=== PATIENT | female | born 1985 | race Caucasian/White ===

== ENCOUNTER 2017-05-22 04:34 | Emergency (ER) | payer OTHER ==
[~2017-05-22] VITALS: Ht 160 cm; Wt 106.6 kg
[~2017-05-22 04:34] MED LIST: AMOXICILLIN500 MG PO; NORCO 10-325 T1 EACH PO; PREDNISONE20 MG PO
[2017-05-22] MEDS ORDERED: METFORMIN HCL500 MG PO (04:48)
== END 2017-05-22 05:30 | disposition home or self-care (01) ==
LOC: ED 04:34
DX: M79.672 Pain in left foot (principal); G89.29 Other chronic pain; R73.03 Prediabetes; Z88.1 Allergy status to other antibiotic agents; Z79.84 Long term (current) use of oral hypoglycemic drugs
CPT/HCPCS: 73630; 99283

== ENCOUNTER 2017-08-19 12:26 | Emergency (ER) | payer OTHER ==
[~2017-08-19] VITALS: Ht 160 cm; Wt 100.0 kg
--- OUTSIDE RECORDS SUMMARY | ~2017-08-19 | XMS | Clinical Summary ---
Demographics + + + | Address | [address] | | | [place] [address] | + + + | Home Phone | | + + + | Preferred Language | Unknown | + + + | Marital Status | Unknown | + + + | Advent Affiliation | Unknown | + + + | Race | Unknown | + + + | Ethnic Group | Unknown | + + + Author + + + | Author | [facility] | | | and [place] | + + + | Organization | [facility] | | | and [place] | + + + | Address | Unknown | + + + | Phone | Unavailable | + + + Support + + +---------+ + | Name | Relationship | Address | Phone | + + +---------+ + | Juan Luis Montes De Oca | JESSICA | Unknown | | + + +---------+ + Care Team Providers + +------+ + | Care Roll Mechanic Name | Role | Phone | + +------+ + PP | Unavailable | + +------+ + Allergies Not on File Current Medications Not on file Active Problems Not on file Social History + +-------+ +--------+------+ | Tobacco Use | Types | Packs/Day | Years | Date | | | | | Used | | + +-------+ +--------+------+ | Never Assessed | | | | | + +-------+ +--------+------+ + + + | Sex Assigned at | Date Recorded | | | | + + + | Not on file | | + + + Plan of Treatment + + + + + | Health Maintenance | Due Date | Last Done | Comments | + + + + + | Vaccine: | | | | | Dtap/Tdap/Td (1 - | 7 | | | | Tdap) | | | | + + + + + | CERVICAL CANCER | | | | | SCREENING (PAP EVERY | 9 | | | | 3 YEARS 21-64 ) | | | | + + + + + | Vaccine: Influenza | | | | | (Season Ended) | 8 | | | + + + + + Results Not on filefrom Last 3 Months"
--- OUTSIDE RECORDS SUMMARY | ~2017-08-19 | XMS | Clinical Summary ---
Demographics + + + | Address | [address] | | | [place] [address] | + + + | Home Phone | | + + + | Preferred Language | Unknown | + + + | Marital Status | Single | + + + | Mosque Affiliation | Unknown | + + + | Race | Unknown | + + + | Ethnic Group | Unknown | + + + Author + + + | Author | [facility] | + + + | Organization | [facility] | + + + | Address | Unknown | + + + | Phone | Unavailable | + + + Support + + + + + | Name | Relationship | Address | Phone | + + + + + | Msg Chelsey | ECON | [address] | | | | | [place] | | | | | [address] | | + + + + + | Juan Luis Conti | ECON | Unknown | | + + + + + Care Team Providers + +------+ + | Care Senior Programmer Name | Role | Phone | + +------+ + | Taras Cedillo | PP | | + +------+ + Allergies + + + + + + | Active Allergy | Reactions | Severity | Noted | Comments | | | | | Date | | + + + + + + | Sulfamethoxazole-Tri | Rash | Medium | 12/11/19 | | | methoprim | | | 14 | | + + + + + + Current Medications No known medications Active Problems No known active problems Family History + + +------+ + | Medical History | Relation | Name | Comments | + + +------+ + | Diabetes type II | Father | | | + + +------+ + + +------+--------+ + | Relation | Name | Status | Comments | + +------+--------+ + | Father | | Alive | | + +------+--------+ + | Mother | | Alive | | + +------+--------+ + Social History + +-------+ +--------+------+ | Tobacco Use | Types | Packs/Day | Years | Date | | | | | Used | | + +-------+ +--------+------+ | Never Smoker | | | | | + +-------+ +--------+------+ + + + | Sex Assigned at | Date Recorded | | | | + + + | Not on file | | + + + Last Filed Vital Signs + + + + | Vital Sign | Reading | Time Taken | + + + + | Blood Pressure | 128/76 | 12/10/2013 11:03 AM PDT | + + + + | Pulse | 86 | 12/10/2013 11:03 AM PDT | + + + + | Temperature | 36.7 C (98 F) | 12/10/2013 11:03 AM PDT | + + + + | Respiratory Rate | 16 | 12/10/2013 11:03 AM PDT | + + + + | Oxygen Saturation | 100% | 12/10/2013 11:03 AM PDT | + + + + | Inhaled Oxygen | - | - | | Concentration | | | + + + + | Weight | 98.9 kg (218 lb) | 12/10/2013 11:03 AM PDT | + + + + | Height | - | - | + + + + | Body Mass Index | - | - | + + + + Plan of Treatment + + + + + | Health Maintenance | Due Date | Last Done | Comments | + + + + + | Vaccine: | | | | | Dtap/Tdap/Td (1 - | 7 | | | | Tdap) | | | | + + + + + | Cervical Cancer | | | | | Screening (Pap) | 9 | | | + + + + + | Vaccine: Influenza | | | | | (Season Ended) | 8 | | | + + + + + Results Not on filefrom Last 3 Months Insurance + +--------+ +------+-------+ + | Payer | Benefi | Subscriber | Type | Phone | Address | | | t Plan | ID | | | | | | / | | | | | | | Group | | | | | + +--------+ +------+-------+ + | MEDICAID | [place] | xxxxxxxx | | | [address] | | | [place] | | | | [place] | | | [place] | | | | [address] | | | [employer] OF MARKETING [employer]OMETRY | | | | | + +--------+ +------+-------+ + + +--------+ +--------+ + + | Guarantor Name | Accoun | Relation to | Date | Phone | Billing Address | | | t Type | Patient | of | | | | | | | | | | + +--------+ +--------+ + + | REYNA CONTI | Person | Self [birth year] | Home: | [address] | | | al/Fam | | 1986 | [phone] | [place] | | | [place] | | | [phone] | [phone] | + +--------+ +--------+ + +"
--- OUTSIDE RECORDS SUMMARY | ~2017-08-19 | XMS | Clinical Summary ---
Demographics + + + | Address | [address] | | | [place] [address] | + + + | Home Phone | | + + + | Preferred Language | Unknown | + + + | Marital Status | Unknown | + + + | Episcopalian Affiliation | Unknown | + + + | Race | Unknown | + + + | Ethnic Group | Unknown | + + + Author + + + | Author | [facility] | | | and [place] | + + + | Organization | [facility] | | | and [place] | [...] Team Providers + +------+ + | Care Goat Herder Name | Role | Phone | + [...]
--- OUTSIDE RECORDS SUMMARY | ~2017-08-19 | XMS | Clinical Summary ---
Demographics + + + | Address | [address] | | | [place] [address] | + + + | Home Phone | | + + + | Preferred Language | Unknown | + + + | Marital Status | Single | + + + | Uatsdin Affiliation | Unknown | + + + | Race | Unknown | + + + | Ethnic Group | Unknown | + + + Author + + + | Author | [facility] | + + + | Organization | [facility] | + + + | Address | Unknown | + + + | Phone | Unavailable | + + + Support + + + + + | Name | Relationship | Address | Phone | + + + + + | Msg Chelsey | ECON | [address] | | | | | [place] | | | | | [address] | | + + + + + | Juan Luis Conti | ECON | Unknown | | + + + + + Care Team Providers + +------+ + | Care Sulfate Drier Machine Operator Name | Role | Phone | + [...] | xxxxxxxx | | | [address] | | | [place] | | | | [place] | | | [place] | | | | [phone] | | | RECORD CLERK SALESPERSON | | | | | + +--------+ [...] | | | [place] | | | [phone] | [phone] | + +--------+ +--------+ + +"
[~2017-08-19 12:26] MED LIST changes: +METFORMIN HCL500 MG PO
[2017-08-19] MEDS ORDERED: PRENATAL COMPL1 EACH PO (12:41)
== END 2017-08-19 14:43 | disposition home or self-care (01) ==
LOC: ED 12:26
DX: O20.9 Hemorrhage in early pregnancy, unspecified (principal); R73.03 Prediabetes; Z88.1 Allergy status to other antibiotic agents; Z79.84 Long term (current) use of oral hypoglycemic drugs; Z3A.10 10 weeks gestation of pregnancy
CPT/HCPCS: 76801; 84702; 85025; 86900; 86901; 99284; J7030

== ENCOUNTER 2018-08-02 10:03 | Emergency (ER) | payer OTHER ==
[~2018-08-02] VITALS: Ht 160 cm; Wt 110.8 kg
--- OUTSIDE RECORDS SUMMARY | ~2018-08-02 | XMS | Clinical Summary ---
Demographics + + + | Address | [address] | | | [place] [address] | + + + | Home Phone | | + + + | Preferred Language | Unknown | + + + | Marital Status | Single | + + + | Restoration Affiliation | Unknown | + + + | Race | Unknown | + + + | Ethnic Group | Unknown | + + + Author + + + | Author | [facility] | + + + | Organization | [facility] | + + + | Address | Unknown | + + + | Phone | Unavailable | + + + Support + + + + + | Name | Relationship | Address | Phone | + + + + + | Msg Chelsey | ECON | [address] | | | | | [place] | | | | | [address] | | + + + + + | Juan Luis Conti | ECON | Unknown | | + + + + + Care Team Providers + +------+ + | Care Sheriff Name | Role | Phone | + [...] | | | | Screening (Pap) | 8 | | | + + + + + | Vaccine: Influenza | | | | | (#1) | 8 | | | + + [...] +------+-------+ + | MEDICAID | [place] | [id number] | | | [address] | | | [place] | | | | [place] | | | [place] | | | | [phone] | | | SENIOR LINUX ADMINISTRATOR | | | | | + +--------+ [...] | | | [place] | | | [phone] | [phone] | + +--------+ +--------+ + +"
--- OUTSIDE RECORDS SUMMARY | ~2018-08-02 | XMS | Clinical Summary ---
Demographics + + + | Address | [address] | | | [place] [address] | + + + | Home Phone | | + + + | Preferred Language | Unknown | + + + | Marital Status | Single | + + + | Taoist Affiliation | Unknown | + + + | Race | Unknown | + + + | Ethnic Group | Unknown | + + + Author + + + | Author | [facility] | + + + | Organization | [facility] | + + + | Address | Unknown | + + + | Phone | Unavailable | + + + Support + + + + + | Name | Relationship | Address | Phone | + + + + + | Msg Chelsey | ECON | [address] | | | | | [place] | | | | | [address] | | + + + + + | Juan Luis Conti | ECON | Unknown | | + + + + + Care Team Providers + +------+ + | Care Clinical Informatics Physician Name | Role | Phone | + [...] +------+-------+ + | MEDICAID | [place] | [id number] | | | [address] | | | [place] | | | | [place] | | | [place] | | | | [phone] | | | COVERSTITCH BINDER | | | | | + +--------+ [...] | | | [place] | | | [phone] | [phone] | + +--------+ +--------+ + +"
--- OUTSIDE RECORDS SUMMARY | ~2018-08-02 | XMS | Clinical Summary ---
Demographics + + + | Address | [address] | | | [place] [address] | + + + | Home Phone | | + + + | Preferred Language | Unknown | + + + | Marital Status | Single | + + + | Quaker Affiliation | Unknown | + + + | Race | Unknown | + + + | Ethnic Group | Unknown | + + + Author + + + | Author | [facility] | | | and [place] | + + + | Organization | [facility] | | | and [place] | + + + | Address | Unknown | + + + | Phone | Unavailable | + + + Support + + +---------+ + | Name | Relationship | Address | Phone | + + +---------+ + | Juan Luis Conti | ECON | Unknown | | + + +---------+ + | Valdo Pressley | ECON | Unknown | | + + +---------+ + Care Team Providers + +------+ + | Care Used Building Materials Yard Worker Name | Role | Phone | + +------+ + | Azam Sierra DO | PP | | + +------+ + Allergies + + + + + + | Active Allergy | Reactions | Severity | Noted | Comments | | | | | Date | | + + + + + + | Sulfamethoxazole-Tri | Rash | Low | 12/23/19 | | | methoprim | | | 18 | | + + + + + + Current Medications + + +---------+---------+------+------+-------+ | Prescription | Sig. | Disp. | Refills | Star | End | Statu | | | | | | t | Date | s | | | | | | Date | | | + + +---------+---------+------+------+-------+ | 27-0.8 mg | Take 1 tablet by | | | | | Activ | | multivitamin tablet | mouth Daily. | | | | | e | + + +---------+---------+------+------+-------+ | labetalol | Take 1 tablet by | 60 | 1 | 10/2 | | Activ | | (NORMODYNE) 100 mg | mouth 2 times daily. | tablet | | 8/20 | | e | | tablet | | | | 18 | | | + + +---------+---------+------+------+-------+ | ibuprofen | Take 1 tablet by | 30 | 1 | 10/2 | | Activ | | (ADVIL,MOTRIN) 600 | mouth every 6 hours | tablet | | 8/20 | | e | | MG tablet | as needed for Pain. | | | 18 | | | + + +---------+---------+------+------+-------+ | | Take 1-2 tablets by | 30 | 0 | 10/2 | | Activ | | HYDROcodone-acetamin | mouth every 4 hours | tablet | | 8/20 | | e | | ophen (NORCO) 5-325 | as needed for Pain. | | | 18 | | | | mg per tablet | | | | | | | + + +---------+---------+------+------+-------+ | docusate sodium | Take 200 mg by mouth | 60 | 1 | 10/2 | | Activ | | (COLACE) 100 MG | Twice daily as | capsule | | 8/20 | | e | | capsule | needed for | | | 18 | | | | | Constipation. | | | | | | + + +---------+---------+------+------+-------+ Active Problems + + + | Problem | Noted Date | + + + | S/P section | 03/02/2018 | + + + | Obesity, Class III, BMI 40-49.9 (morbid obesity) (HCC) | 03/01/2018 | + + + | Term | 03/01/2018 | + + + | Hypertension | 03/01/2018 | + + + | Beta Blockers - Daily Use | 03/01/2018 | + + + | Gestational diabetes, diet controlled | 12/20/2017 | + + + Immunizations + + + + | Name | Dates Previously Given | Next Due | + + + + | MMR, 2 DOSE | 03/02/2018 (Deferred: - pt is immune) | | | (PED/ADULT) | | | + + + + | TDAP, (ADOL/ADULT) | 03/02/2018 (Deferred: - pt has already had | | | | it this ) | | + + + + Social History + +-------+ +--------+------+ | Tobacco Use | Types | Packs/Day | Years | Date | | | | | Used | | + +-------+ +--------+------+ | Never Smoker | | | | | + +-------+ +--------+------+ + +---+---+---+ | Smokeless Tobacco: | | | | | Never Used | | | | + +---+---+---+ + + +---------+ + | Alcohol Use | Drinks/We | oz/Week | Comments | | | ek | | | + + +---------+ + | No | | | | + + +---------+ + + + + | Sex Assigned at | Date Recorded | | | | + + + | Not on file | | + + + Last Filed Vital Signs + + + + | Vital Sign | Reading | Time Taken | + + + + | Blood Pressure | 168/86 | 03/05/20181599 PDT | + + + + | Pulse | 82 | 03/05/2018 1600 PDT | + + + + | Temperature | 36.8 C (98.2 F) | 03/05/2018 0826 PDT | + + + + | Respiratory Rate | 18 | 03/05/20181353 PDT | + + + + | Oxygen Saturation | 98% | 03/05/20181353 PDT | + + + + | Inhaled Oxygen | - | - | | Concentration | | | + + + + | Weight | 116.1 kg (256 lb) | 02/28/20182054 PDT | + + + + | Height | 160 cm (5' 3") | 02/28/20182054 PDT | + + + + | Body Mass Index | 45.35 | 02/28/20182054 PDT | + + + + Plan of [...] + + + | Vaccine: Influenza | Completed | 02/16/2018 | | + + + + + Results Not on filefrom Last 3 Months Insurance + +--------+ +--------+ +---------+ | Payer | Benefi | Subscriber | Type | Phone | Address | | | t Plan | ID | | | | | | / | | | | | | | Group | | | | | + +--------+ +--------+ +---------+ | [employer] | [employer] | [id number] | Medica | [phone] | | | MEDICAID HMO | HEALTH | | id | [id number] | | | | MDCD | | | | | | | [place]MO [place] | | | | | + +--------+ +--------+ +---------+ + +--------+ +--------+ + + | Guarantor Name | Accoun | Relation to | Date | Phone | Billing Address | | | t Type | Patient | of | | | | | | | | | | + +--------+ +--------+ + + | REYNA CONTI | Person | Self [birth year] | Home: | [address] | | | al/Fam | | 1986 | [phone] | [place] [address] | | | [place] | | | [phone] | | + +--------+ +--------+ + +
--- OUTSIDE RECORDS SUMMARY | ~2018-08-02 | XMS | Clinical Summary ---
Demographics + + + | Address | [address] | | | [place] [address] | + + + | Home Phone | | + + + | Preferred Language | Unknown | + + + | Marital Status | Single | + + + | Yazidi Affiliation | Unknown | + + + | Race | Unknown | + + + | Ethnic Group | Unknown | + + + Author + + + | Author | [facility] | | | and [place] | + + + | Organization | [facility] | | | and [place] [...] Team Providers + +------+ + | Care Engraving Patternmaker Name | Role | Phone | + [...] | [employer] | [employer] | [id number] | Medica | [phone] | | | MEDICAID HMO | HEALTH [...] | 1986 | [phone] | [place] [address] | | | [place] | | | [phone] | | + +--------+ +--------+ + +
[~2018-08-02 10:03] MED LIST changes: +PRENATAL COMPL1 EACH PO
[2018-08-02] MEDS ORDERED: IBUPROFEN600 MG PO (10:25)
== END 2018-08-02 10:30 | disposition home or self-care (01) ==
LOC: ED 10:03
DX: M25.571 Pain in right ankle and joints of right foot (principal)